=== PATIENT | male | born 2000 | race Caucasian/White ===

== ENCOUNTER 2023-04-15 03:23 | Emergency (ER) | payer OTHER ==
[~2023-04-15] VITALS: Ht 193 cm; Wt 133.8 kg
[~2023-04-15 03:23] MED LIST: CLARITIN5 MG/5 ML PO
[2023-04-15 03:31] VITALS: BP 146/60
[2023-04-15 04:10] LABS: BASO # 0.1 10*3/uL (0.0-0.1); BASO % 0.4 % (0.0-1.0); EOS # 0.1 10*3/uL (0.0-0.4); EOS % 0.6 % (1.0-4.0); HEMATOCRIT 44.7 % (42.0-52.0); LYMPH # 2.9 10*3/uL (1.3-4.4); LYMPH % 15.5 % (27.0-41.0); MEAN CELL VOLUME 82.8 fl (80.0-94.0); MEAN CORPUSCULAR HGB 28.3 pg (27.0-31.0); MEAN CORPUSCULAR HGB CONC 34.2 g/dl (33.0-37.0); MEAN PLATELET VOLUME 10.4 fl (9.6-12.3); MONO # 1.5 10*3/uL (0.1-1.0); NEUT % 74.9 % (47.0-73.0); PLATELET COUNT AUTOMATED 295 10*3/uL (130-400); RED CELL DISTRI WIDTH 12.3 % (0-14.5); WHITE BLOOD COUNT 18.7 10*3/uL (4.8-10.8)
[2023-04-15 04:30] LABS: ALKALINE PHOSPHATASE 54 U/L (46-116); BUN 16 mg/dl (9-23); CHLORIDE 106 mmol/L (98-107); POTASSIUM 3.6 mmol/L (3.4-5.1); SGPT/ALT 12 U/L (5-49); TOTAL PROTEIN 7.8 gm/dL (6.0-8.0)
[2023-04-15 05:40] LABS: BILIRUBIN Negative (Negative); BLOOD 3+ (Negative); CLARITY Cloudy (Clear); COLOR Yellow (Yellow); GLUCOSE Negative (Negative); KETONE Trace (Negative); LEUKO ESTERASE Negative (Negative); NITRITE Negative (Negative); SPECIFIC GRAVITY 1.025 (1.001-1.030)
[2023-04-15 06:15] LABS: BACTERIA 2+; EPITHELIAL CELLS 0-2; MUCOUS 3+; RBC TNTC rbc/hpf (0-2)
== END 2023-04-15 06:38 | disposition home or self-care (01) ==
LOC: ED 03:23
PROVIDERS: Family Medicine
DX: Q63.2 Ectopic kidney (principal); R31.9 Hematuria, unspecified; R11.10 Vomiting, unspecified; Z88.0 Allergy status to penicillin; Z91.040 Latex allergy status; Z91.018 Allergy to other foods; Z88.8 Allergy status to other drugs, medicaments and biological substances; Z98.890 Other specified postprocedural states